=== PATIENT | male | born 1975 | race Caucasian/White ===

== ENCOUNTER 2018-11-12 11:50 | Emergency (ER) | payer BC ==
[2018-11-12] MEDS ORDERED: Tetan/Diph/Pertus SYR(Tdap)* 0.5 ML SYR(BOOSTRIX) use SYR IM ONE (13:29)
[2018-11-12 13:53] VITALS: BP 0/0
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
== END 2018-11-12 13:51 | disposition home or self-care (01) ==
LOC: ED 11:50
DX: S01.511A Laceration without foreign body of lip, initial encounter (principal); W26.8XXA Contact with other sharp object(s), not elsewhere classified, initial encounter; Y92.9 Unspecified place or not applicable
CPT/HCPCS: 90471; 90715; 99282